=== PATIENT | female | born 1955 | race African-American/Black ===

== ENCOUNTER 2017-10-24 14:03 | Emergency (ER) | payer OTHER, MEDICAID ==
[~2017-10-24] VITALS: Ht 165.1 cm; Wt 70.0 kg
[~2017-10-24 14:03] MED LIST: ATROVENT; BECL8.7A6; BIOTIN; BRIM5DRO6; FERR-43; GLIP10TA10; INSU100V3; LORA10CA; LOSA25TA12; METF10002; OMEP20CA10; SIMV40TA5
[2017-10-24 14:32] VITALS: BP 135/71
[2017-10-24] MEDS ORDERED: ACETAMINOPHEN 325MG TABLET PO ONE (16:30)
== END 2017-10-24 17:11 | disposition home or self-care (01) ==
LOC: ER 15:39
DX: M72.2 Plantar fascial fibromatosis (principal); E11.9 Type 2 diabetes mellitus without complications; I10 Essential (primary) hypertension; K21.9 Gastro-esophageal reflux disease without esophagitis; H40.9 Unspecified glaucoma; Z88.6 Allergy status to analgesic agent; Z98.890 Other specified postprocedural states
CPT/HCPCS: 99282

== ENCOUNTER 2021-05-04 07:47 | Emergency (ER) | payer MEDICAID, OTHER ==
[~2021-05-04] VITALS: Ht 165.1 cm; Wt 61.5 kg
[~2021-05-04 07:47] MED LIST changes: -LOSA25TA12; +LOSA25TA26; +METF-416; -METF10002; -OMEP20CA10; +OMEP20CA14; +SIMV-46; -SIMV40TA5
[2021-05-04 07:49] VITALS: BP 129/68
[2021-05-04 08:21] LABS: CLARITY URINE CLEAR (CLEAR); COLOR URINE DARK YELLOW (YELLOW); KETONES URINE TRACE (NEGATIVE); LEUKOCYTE ESTERASE URINE 2+ (NEGATIVE); NITRITE URINE NEGATIVE (NEGATIVE); OCCULT BLOOD URINE NEGATIVE (NEGATIVE); PH URINE 7.5 (4.5-8.0); PROTEIN URINE TRACE (NEGATIVE); SPECIFIC GRAVITY URINE 1.031 (1.005-1.030); UROBILINOGEN URINE 0.2 E.U./dL (0.2-1.0)
[2021-05-04] MEDS ORDERED: LORA10TA7 MT (08:30)
[2021-05-04] MEDS ORDERED: METH-773 MT (08:30)
[2021-05-04] MEDS ORDERED: LOSA50TA41 MT (08:30)
[2021-05-04] MEDS ORDERED: OMEP20CA14 MT (08:30)
[2021-05-04 08:36] LABS: CHLORIDE 101 mEq/L (98-107)
[2021-05-04 08:40] LABS: PARTIAL THROMBOPLASTIN TIME 23.6 sec (23.4-31.0); PROTHROMBIN TIME 10.6 sec (9.6-11.0)
[2021-05-04 08:59] LABS: BASOPHILS % 0.7 % (0.0-2.0); EOSINOPHILS % 0.9 % (0.0-5.0); HEMATOCRIT. 38.2 % (36.0-48.0); HEMOGLOBIN. 13.1 g/dL (12.0-16.0); LYMPHOCYTES % 43.4 % (20.0-50.0); MEAN CORPUSCULAR HEMOGLOBIN 31.5 pg (28.0-32.0); MEAN CORPUSCULAR VOLUME 92.1 fL (81.0-99.0); MEAN PLATELET VOLUME 7.6 fl (7.4-10.4); MONOCYTES % 7.1 % (2.0-8.0); NEUTROPHILS % 47.9 % (40.0-76.0); PLATELET 380 x1000/uL (130-400); RED BLOOD CELL COUNT 4.14 mill/uL (4.2-5.4); RED CELL DISTRIBUTION WIDTH 13.6 % (11.6-14.6)
== END 2021-05-04 09:39 | disposition home or self-care (01) ==
LOC: ER 09:23
DX: N93.8 Other specified abnormal uterine and vaginal bleeding (principal); D21.9 Benign neoplasm of connective and other soft tissue, unspecified; I10 Essential (primary) hypertension; E11.65 Type 2 diabetes mellitus with hyperglycemia; M54.40 Lumbago with sciatica, unspecified side; Z76.0 Encounter for issue of repeat prescription; E78.00 Pure hypercholesterolemia, unspecified; Z98.51 Tubal ligation status; Z79.899 Other long term (current) drug therapy; Z98.890 Other specified postprocedural states; Z88.8 Allergy status to other drugs, medicaments and biological substances; Z88.6 Allergy status to analgesic agent
CPT/HCPCS: 36415; 76830; 76856; 80053; 81003; 85025; 99284

== ENCOUNTER 2021-12-21 07:25 | Emergency (ER) | payer MEDICAID ==
[~2021-12-21] VITALS: Ht 165.1 cm; Wt 60.0 kg
[~2021-12-21 07:25] MED LIST changes: +LORA10TA7 MT; +LOSA50TA41 MT; +METH-773 MT; +OMEP20CA14 MT
[2021-12-21] MEDS ORDERED: LOSA50TA41 MT (07:45)
[2021-12-21] MEDS ORDERED: PRAV40TA58 MT (07:45)
[2021-12-21] MEDS ORDERED: OMEP20CA14 MT (07:45)
[2021-12-21] MEDS ORDERED: NPH,100V SQ (07:45)
[2021-12-21] MEDS ORDERED: GLIP10TA10 MT (07:45)
[2021-12-21] MEDS ORDERED: METF-874 MT (07:45)
[2021-12-21] MEDS ORDERED: MAG-55 MT (07:45)
[2021-12-21] MEDS ORDERED: LORA10TA7 MT (07:45)
[2021-12-21 08:04] VITALS: BP 146/87
== END 2021-12-21 08:31 | disposition home or self-care (01) ==
LOC: ER 07:28
DX: Z76.0 Encounter for issue of repeat prescription (principal); E11.9 Type 2 diabetes mellitus without complications; K21.9 Gastro-esophageal reflux disease without esophagitis; E78.00 Pure hypercholesterolemia, unspecified; I10 Essential (primary) hypertension; Z98.51 Tubal ligation status; Z79.899 Other long term (current) drug therapy
CPT/HCPCS: 99283